=== PATIENT | male | born 2000 | race Caucasian/White ===

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

== ENCOUNTER 2024-12-18 20:35 | Emergency (ER) | payer OTHER ==
[2024-12-18 20:41] VITALS: TEMP 98.4; BMI 22.4
[2024-12-18 21:48] LABS: ABSOLUTE IMMATURE GRANULOCYTES 0.04 x10^3/uL (0.0-0.031); BASOPHILS # 0.04 x10^3/uL (0.01-0.08); EOSINOPHILS # 0.14 x10^3/uL (0.04-0.54); HEMOGLOBIN 15.3 g/dL (13.7-17.5); MCHC 33.3 g/dl (32.3-36.5); MEAN CELL VOLUME 94.7 fl (79.0-92.2); MEAN PLT VOLUME 10.4 fl (9.4-12.4); MONOCYTE # 0.62 x10^3/uL (0.30-0.82); MONOCYTE % 8.7 % (5.3-12.2); PLATELET COUNT 221 x10^3/uL (163-337)
[2024-12-18 22:17] LABS: POTASSIUM 4.2 mmol/L (3.5-5.1)
[2024-12-18 22:19] LABS: CALCIUM 9.8 mg/dL (8.5-10.1)
[2024-12-18 22:20] LABS: ALBUMIN 4.1 g/dl (3.4-5.0); BLOOD UREA NITROGEN 15.9 mg/dL (7-18); MAGNESIUM 2.4 mg/dL (1.8-2.4)
[2024-12-18 22:23] LABS: CREATININE 1.3 mg/dL (0.55-1.3)
[2024-12-18 22:24] LABS: TOT PROT 7.5 g/dl (6.4-8.2)
[2024-12-18 22:26] LABS: BILIRUBIN,TOTAL 0.5 mg/dL (0.2-1)
[2024-12-19 00:05] VITALS: BP 102/54; PULSE 76; RESP 16
[2024-12-19 20:17] LABS: HIV INTERPRETATION NEGATIVE (NEGATIVE)
[2024-12-19 20:18] LABS: HCV DIAGNOSTIC IN-HOUSE W/RFLX NON-REACTIVE (NONREACTIVE)
== END 2024-12-19 00:06 | disposition home or self-care (01) ==
LOC: JER 20:35
DX: R55 Syncope and collapse (principal); R53.1 Weakness
CPT/HCPCS: 36415; 71045-TC-FY; 80053; 83735; 84484; 85025; 86803; 87389; 93005; 93010; 99285-25